=== PATIENT | female | born 1940 | race Caucasian/White ===

== ENCOUNTER → 2016-04-01 | Outpatient (CLI) | payer MEDICARE ==
[~2016-04-01] MED LIST: AMBIEN DPS10 MG PO; BACTRIM DS DPS1 TAB PO; BACTROBAN OINT.22 GM TP; CLARITIN DPS10 MG PO; CLEOCIN HCL300 MG PO; COLACE-DPS100 MG PO; FLAGYL-DPS500 MG PO; FLAGYL500 MG PO; FLOVENT 220MCG12 GM IH; GAMUNEX-C10 GM/100 IV; GAVISCON ES TA1 EACH PO; INDERAL LA60 MG PO; LAMICTAL DPS100 MG PO; LEVAQUIN DPS750 MG PO; LIDODERM PATC1 PATCH TP; NASONEX NASAL S17 GM NS; NORCO 7.5-3251 EACH PO; PRILOSEC DPS20 MG PO; PROAIR RESPICL90 MCG IH; PROVENTIL HFA6.7 GM IH; REMERON DPS30 MG PO; ROBITUSSIN DM D30 ML PO; XANAX DPS1 MG PO; ZANAFLEX4 MG PO
== END | disposition home or self-care (01) ==
LOC: PTH.S 03-31 08:45
DX: J47.9 Bronchiectasis, uncomplicated (principal); J98.4 Other disorders of lung

== ENCOUNTER → 2016-08-03 | Outpatient (CLI) | payer MEDICARE ==
[~2016-08-03] MED LIST changes: +IVIG IV; -LIDODERM PATC1 PATCH TP; +LIDODERM1 EACH TD; +PROPRANOLOL HCL60 MG PO; +REMERON30 MG PO
== END | disposition home or self-care (01) ==
LOC: PTH.S 11:11
DX: D80.3 Selective deficiency of immunoglobulin G [IgG] subclasses (principal)